=== PATIENT | female | born 1965 | race Caucasian/White ===

== ENCOUNTER 2017-03-08 15:15 | Outpatient (RCR) | payer OTHER | END 2017-03-09 | LOC: M PT 15:15 | PROVIDERS: ATTEND Family Medicine | DX: Z51.89 Encounter for other specified aftercare (principal); M25.511 Pain in right shoulder; M25.512 Pain in left shoulder ==

== ENCOUNTER 2017-04-07 11:41 | Outpatient (RCR) | payer OTHER | END 2017-04-08 | LOC: M PT 11:41 | PROVIDERS: ATTEND Family Medicine | DX: Z51.89 Encounter for other specified aftercare (principal); M25.511 Pain in right shoulder; M25.512 Pain in left shoulder ==

== ENCOUNTER → 2017-06-08 | Outpatient (RCR) | payer OTHER | LOC: M PT 05-12 09:14 | PROVIDERS: ATTEND Family Medicine | DX: Z51.89 Encounter for other specified aftercare (principal); M25.511 Pain in right shoulder; M25.512 Pain in left shoulder ==

== ENCOUNTER → 2017-09-10 | Outpatient (REF) | payer OTHER | LOC: M LAB REF 09:37 | DX: M54.5 Low back pain (principal) | CPT/HCPCS: 87086 ==

== ENCOUNTER 2017-12-13 07:07 | Day surgery (SDC) | payer OTHER ==
[2017-12-13] MEDS: NS 1,000 ML IV (07:29)
[2017-12-13] MEDS ORDERED: PROPOFOL 200 MG/20 ML VIAL As Ordered ×2 (07:37→08:25)
== END 2017-12-13 09:22 | disposition home or self-care (01) ==
LOC: M OPP 07:07
DX: Z12.11 Encounter for screening for malignant neoplasm of colon (principal); K64.8 Other hemorrhoids; K57.30 Diverticulosis of large intestine without perforation or abscess without bleeding; K21.9 Gastro-esophageal reflux disease without esophagitis; Z79.899 Other long term (current) drug therapy; Z88.8 Allergy status to other drugs, medicaments and biological substances; J96.00 Acute respiratory failure, unspecified whether with hypoxia or hypercapnia; H40.9 Unspecified glaucoma; Z90.49 Acquired absence of other specified parts of digestive tract; Z91.89 Other specified personal risk factors, not elsewhere classified; Z98.51 Tubal ligation status; Z80.6 Family history of leukemia
CPT/HCPCS: 45378